=== PATIENT | male | born 1985 | race African-American/Black ===

== ENCOUNTER 2018-02-14 10:49 | Emergency (ER) | payer MEDICAID, OTHER ==
[~2018-02-14] VITALS: Ht 180.3 cm; Wt 100.0 kg
[2018-02-14] MEDS ORDERED: ABIL10 PO (11:00)
[2018-02-14 14:47] VITALS: BP 152/86
== END 2018-02-14 15:41 | disposition home or self-care (01) ==
LOC: ER 11:16
DX: F41.0 Panic disorder [episodic paroxysmal anxiety] (principal); F20.9 Schizophrenia, unspecified; F17.200 Nicotine dependence, unspecified, uncomplicated
CPT/HCPCS: 99284